=== PATIENT | female | born 1940 | race Caucasian/White ===

== ENCOUNTER → 2016-03-23 | Outpatient (CLI) | payer OTHER | LOC: LAB 14:04 | PROVIDERS: ATTEND Physician Assistant | DX: E03.9 Hypothyroidism, unspecified (principal); E55.9 Vitamin D deficiency, unspecified | CPT/HCPCS: 82306; 84443 ==

== ENCOUNTER → 2016-09-22 | Outpatient (CLI) | payer OTHER ==
[2016-09-22 17:49] LABS: BASOPHILS # (AUTO) 0.03 10*3/UL; BASOPHILS % (AUTO) 0.4 % (0-1); EOSINOPHILS # (AUTO) 0 10*3/UL; EOSINOPHILS % (AUTO) 0 % (0-8); HEMATOCRIT 40.3 % (37.0-47.0); LYMPHOCYTES # (AUTO) 0.77 10*3/uL; MEAN CORPUSCULAR HEMOGLOBIN 30.3 PG (27-31); MEAN CORPUSCULAR HGB CONC 32.3 g/dL (33-37); MEAN CORPUSCULAR VOLUME 93.9 FL (81-99); MEAN PLATELET VOLUME 11.4 FL (7.4-12.2); MONOCYTES # (AUTO) 0.66 10*3/UL (0.3-0.8); MONOCYTES % (AUTO) 9.8 % (5-15); NEUTROPHILS # (AUTO) 5.27 10*3/UL; NEUTROPHILS % (AUTO) 78.3 % (50-80); RED BLOOD COUNT 4.29 10^6/uL (4.20-5.40)
[2016-09-22 17:51] LABS: BLOOD UREA NITROGEN 29 mg/dL (7-22); BUN/CREATININE RATIO 20.71 (6-20); CALCIUM 8.9 mg/dL (8.7-10.7); LIPASE 119 IU/L (23-300); SERUM ALBUMIN 3.4 g/dL (3.5-4.8)
[2016-09-22 18:16] LABS: PLATELET MORPHOLOGY COMMENT NORMAL MORPHOLOGY (NORM); RBC MORPHOLOGY COMMENT NORMAL MORPHOLOGY (NORM); WBC MORPHOLOGY COMMENT NORMAL MORPHOLOGY (NORM)
== END ==
LOC: LAB 15:50
PROVIDERS: ATTEND Nurse Practitioner Family
DX: R10.11 Right upper quadrant pain (principal); R10.13 Epigastric pain; R19.7 Diarrhea, unspecified; R11.0 Nausea; A04.8 Other specified bacterial intestinal infections
CPT/HCPCS: 80053; 82150; 83690; 85025

== ENCOUNTER → 2016-10-06 | Outpatient (CLI) | payer OTHER ==
--- NOTE | 2016-10-06 12:48 | DI ---
History: Low back pain Comparison: 2010 Findings: Subjectively, there is osteopenia. Curvature of the lumbar spine, convexity right Intervertebral disc space narrowing and endplate osteophyte formation throughout the lumbar spine. Ri ght lateral subluxation of L4 on L5. No compression fracture Impression Extensive degenerative changes including intervertebral disc space narrowing, and osteophyte formatio n, significantly worse as compared with the study of August 11, 2009 Dextroscoliosis of the lumbar spine, worse as compared with the second 2009 Approximately 1 cm right lateral subluxation of L4 on L5 which is a new finding
== END ==
LOC: RAD 10:51
PROVIDERS: ATTEND Nurse Practitioner Family
DX: M54.5 Low back pain (principal); M47.816 Spondylosis without myelopathy or radiculopathy, lumbar region
CPT/HCPCS: 72110

== ENCOUNTER 2017-08-23 22:15 | Inpatient (IN) ==
[2017-08-23] MEDS ORDERED: Sodium Chloride 0.9% 1,000 ML PRIMARY IV ONE (22:26)
[2017-08-23 22:34] LABS: BASOPHILS # (AUTO) 0.03 10*3/UL; BASOPHILS % (AUTO) 0.4 % (0-1); EOSINOPHILS # (AUTO) 0 10*3/UL; EOSINOPHILS % (AUTO) 0 % (0-8); Hematocrit [HCT] 42.1 % (37.0-47.0); Hemoglobin [HGB] 13.8 g/dL (12.0-16.0); LYMPHOCYTES # (AUTO) 1.16 10*3/uL; MEAN CORPUSCULAR HEMOGLOBIN 30.6 PG (27-31); MEAN CORPUSCULAR HGB CONC 32.8 g/dL (33-37); MEAN CORPUSCULAR VOLUME 93.3 FL (81-99); MEAN PLATELET VOLUME 10.8 FL (7.4-12.2); MONOCYTES % (AUTO) 8.8 % (5-15); NEUTROPHILS # (AUTO) 5.02 10*3/UL; NEUTROPHILS % (AUTO) 73.5 % (50-80); RED BLOOD COUNT 4.51 10^6/uL (4.20-5.40)
[2017-08-23 22:39] LABS: BLOOD UREA NITROGEN 17 mg/dL (7-22); BUN/CREATININE RATIO 14.16 (6-20); PLATELET MORPHOLOGY COMMENT NORMAL MORPHOLOGY (NORM); RBC MORPHOLOGY COMMENT NORMAL MORPHOLOGY (NORM); SERUM ALBUMIN 3.9 g/dL (3.5-4.8); WBC MORPHOLOGY COMMENT NORMAL MORPHOLOGY (NORM)
[2017-08-23] MEDS ORDERED: ONDANSETRON 4 MG/2 ML VIAL IVP ONE (22:47)
--- NOTE | 2017-08-23 22:50 | EKG ---
[address] [address] Measurements Intervals [place] Rate: 64 P: 65 OH: 212 QRS: 21 QRSD: 97 T: 51 QT: 470 QTc: 480 Interpretive Statements SINUS RHYTHM WITH FIRST DEGREE AV BLOCK PROLONGED QT INTERVAL No previous ECG available for comparison Electronically Signed On 08-24-17 08:25:49 MDT by Reid Oliva MD [email or web address]
[2017-08-23] MEDS ORDERED: fentaNYL Inj 100 MCG/2 ML VIAL IVP ONE (23:22)
[2017-08-23] MEDS ORDERED: LIDOCAINE HCL 2 % 10 ML JELLY URO-JECT TOPICAL PRN (23:23)
--- NOTE | 2017-08-24 00:07 | DI ---
EXAM: XR Chest, 1 View CLINICAL HISTORY: ITS.REASON fall Physician Notes: Tech Comments: TECHNIQUE: Frontal view of the chest. COMPARISON: No relevant prior studies available. FINDINGS: Lungs: Unremarkable. No consolidation. Pleural space: Unremarkable. No pneumothorax. Heart: Unremarkable. No cardiomegaly. Mediastinum: Unremarkable. Bones/joints: Unremarkable. IMPRESSION: Normal chest x-ray.
--- NOTE | 2017-08-24 00:09 | DI ---
EXAM: XR Left Hip With Pelvis When Performed, 1 View CLINICAL HISTORY: ITS.REASON fall Physician Notes: Tech Comments: TECHNIQUE: Frontal view of the left hip, with pelvis when performed. COMPARISON: No relevant prior studies available. FINDINGS: Bones/joints: Displaced subcapital left femoral neck fracture. No dislocation. Soft tissues: Unremarkable. IMPRESSION: Displaced subcapital left femoral neck fracture.
[2017-08-24 00:15] LABS: BILIRUBIN,URINE NEGATIVE (NEG); CLARITY,URINE CLEAR (CLEAR); COLOR,URINE YELLOW (Y); GLUCOSE, URINE (UA) NEGATIVE (NEG); OCCULT BLOOD,URINE NEGATIVE (NEG); PH,URINE 5.5 (5.0-8.5); PROTEIN,URINE NEGATIVE (NEG); UROBILINOGEN,URINE 0.2 EU/dL (0.2)
[2017-08-24 00:21] LABS: BACTERIA,URINE MANY; RBC,URINE 0 /hpf; SQUAMOUS EPITHELIAL CELL,UR FEW; URINE SAMPLE TYPE CATH SPECIMEN
--- NOTE | 2017-08-24 00:26 | PDOC ---
Hip Injury/Pain HPI - General Chief Complaint: Lower Extremity Problem/Injury Stated Complaint: LEFT HIP PAIN AFTER FALL X 2 Date Seen by Provider: 08/24/17 Time Seen by Provider: 22:25 Source: POSITIVE: Patient, EMS Exam Limitations: POSITIVE: No limitations Nurse's Notes Reviewed & Considered: Yes EMS Report Reviewed & Considered: Verbal - History of Present Illness Initial Comments: The patient is a 76-year-old female who is brought to the emergency department by ambulance with complaints of left hip pain. She states that she was drinking to celebrate the August. She apparently lost her balance and fell landing on her left hip. She had had a minor fall earlier in the afternoon and already had some pain to the left hip however she was able to walk and bear weight on the left leg. After her second fall this evening she was unable to get up and EMS had to be called. She did not hit her head and denies any loss of consciousness. She does have a history of atrial fibrillation and she is anticoagulated with eliquis. She has no complaints of neck or back pain. She does not have any known history of prior injury to the left hip or previous surgery. She states that she normally does not drink alcohol however was drinking whiskey this evening. Have you received a tetanus shot in the past 10 years?: Unknown - Patient Home Medications Home Medications: Home Medications Naproxen 1 tab PO 2-3XD #180 tab 03/31/16 Ergocalciferol (Vitamin D2) [Vitamin D2] 1 cap PO 2XW #24 cap 06/14/16 Furosemide [Lasix] 1 unit PO QD PRN #90 tab 08/01/16 apixaban 5 mg tablet 5 mg PO tab 06/20/17 hydrocodone 5 mg-acetaminophen 325 mg tablet 1 tab PO BID PRN #60 tab 06/22/17 hydroxyzine HCl 10 mg tablet 10 mg PO QHS PRN #90 tab 06/22/17 levothyroxine 100 mcg tablet 100 mcg PO DAILY #90 tab 06/22/17 duloxetine 30 mg capsule,delayed release 30 mg PO QDAY #90 cap 07/18/17 oxycodone 10 mg tablet 10 mg PO QHS PRN #45 tab 07/18/17 metoprolol tartrate 25 mg tablet 25 mg PO BID #90 tab 08/14/17 - Patient Allergies Allergies/Adverse Reactions: Allergies 3 Allergy/AdvReac Type Severity Reaction Status Date / Time Penicillins Allergy Severe severe rash Verified 08/23/17 22:48 Past Medical History - heen HEENT History: Denies History Cardiovascular History: Hypertension, Arrhythmia, Pacemaker Respiratory History: COPD, Emphysema, Home Oxygen Use, Other (please comment) Additional Respiratory History: PT IS SUPPOSE TO USE HOME O2 BUT DOES NOT Gastrointestinal History: Denies History Genitourinary History: Denies History Endocrine History: Hypothyroidism Musculoskeletal History: Back Pain Neurological History: Denies History Blood Disorders: Denies History Psychiatric History: Denies History History of Sexually Transmitted Diseases: No Female Reproductive History: Denies History Obstetrical History: Denies History Cancer History: Denies History In Past Year Been Physically Harmed or Verbally Threatened: No History of MDRO: No History of Other Communicable Diseases: No Tobacco Use: Never Smoker Type of alcohol normally used: Hard Liquor In the Past 12 Months, Have Used or Abuse Any Substance: None Previous Surgical History: Yes Type / Date of Surgery: JACKELYN. BLADDER SLING. PACEMAKER PLACEMENT Significant Family History: No pertinent family hx Past Medical History Reviewed: Reviewed - No Changes ROS - Limitations ROS Limitations: No Limitations Constitution: DENIES: Chills, Fever Cardiovascular: DENIES: Chest Pain, Heart Palpitations Respiratory: REPORTS: Denies Resp Symptoms Neurological: DENIES: Headache, Numbness, Weakness Gastrointestinal: DENIES: Abdominal Pain Musculoskeletal: REPORTS: Other (She does have venous stasis ulcers on her legs for which she has been seeing wound care in [place]) Eyes: REPORTS: Denies Symptoms ENT: REPORTS: Denies Symptoms Hip Injury / Pain Exam - General Appearance General Appearance: POSITIVE: Alert, Cooperative, No Acute Distress - Lower Extremity Extremities: POSITIVE: Other (Examination of the left leg reveals the leg to be internally rotated and shortened, she has no range of motion of the left hip without significant pain, good dorsalis pedis pulse in the left foot, she does have venous stasis ulcers on the lower posterior legs bilaterally, pelvis is stable) - HEENT HEENT: POSITIVE: Head Inspection Nml, Eyes Inspection Nml, Ears Inspection Nml - Neck/Back Neck: POSITIVE: Normal Inspection - Respiratory / CVS Cardiovascular: POSITIVE: Regular Rate and Rhythm, Heart Sounds Normal Respiratory: POSITIVE: Breath Sounds Normal, No Respiratory Distress - Abdomen Abdomen: Soft: (All Quadrants), Denies Tenderness: (All Quadrants) Hip Injury / Pain Progress - Results Reviewed by me Xrays/CTs/US Reviewed by me: Yes Discussed with Radiologist: Yes CBC and BMP: 08/23/17 21:20 08/23/17 21:20 Lab Results:: Laboratory Results 3 08/23/17 08/23/17 08/23/17 21:20 21:20 21:20 WBC 6.83 RBC 4.51 Hgb 13.8 Hct 42.1 MCV 93.3 MCH 30.6 MCHC 32.8 L RDW Std Deviation 46.1 RDW Coeff of Kassi 13.9 Plt Count 304 MPV 10.8 Immature Gran % (Auto) 0.3 Neut % (Auto) 73.5 Lymph % (Auto) 17.0 Ramsey % (Auto) 8.8 Eos % (Auto) 0 Baso % (Auto) 0.4 Immature Gran # (Auto) 0.02 Neut # (Auto) 5.02 Lymph # (Auto) 1.16 Ramsey # (Auto) 0.60 Eos # (Auto) 0 Baso # (Auto) 0.03 WBC Morphology Comment Normal morphology Plt Morphology Comment Normal morphology RBC Morph Comment Normal morphology PT 11.1 INR 1.05 Sodium 141 Potassium 3.6 L Chloride 105 Carbon Dioxide 20 L Anion Gap 16 BUN 17 Creatinine 1.2 BUN/Creatinine Ratio 14.16 Glucose 105 Calculated Osmolality 293.0 H Calcium 8.8 Magnesium Total Bilirubin 0.2 L AST 25 ALT 24 Alkaline Phosphatase 93 Troponin I NT-Pro-B Natriuret Pep 329 Total Protein 6.9 Albumin 3.9 Globulin 3.0 Albumin/Globulin Ratio 1.30 Ur Collection Type Urine Color Urine Clarity Urine pH Ur Specific [place] Urine Protein Urine Glucose (UA) Urine Ketones Urine Occult Blood Urine Nitrate Urine Bilirubin Urine Urobilinogen Ur Leukocyte Esterase Urine RBC Urine WBC Ur Squamous Epith Cells Ur Renal Epithelial Cell Urine Crystals Urine Bacteria Urine Casts Urine Mucus Urine Trichomonas Urine Yeast Ur Culture Indicated? Serum Alcohol 3 08/23/17 08/23/17 08/23/17 21:20 21:20 21:20 WBC RBC Hgb Hct MCV MCH MCHC RDW Std Deviation RDW Coeff of Kassi Plt Count MPV Immature Gran % (Auto) Neut % (Auto) Lymph % (Auto) Ramsey % (Auto) Eos % (Auto) Baso % (Auto) Immature Gran # (Auto) Neut # (Auto) Lymph # (Auto) Ramsey # (Auto) Eos # (Auto) Baso # (Auto) WBC Morphology Comment Plt Morphology Comment RBC Morph Comment PT INR Sodium Potassium Chloride Carbon Dioxide Anion Gap BUN Creatinine BUN/Creatinine Ratio Glucose Calculated Osmolality Calcium Magnesium 2.0 Total Bilirubin AST ALT Alkaline Phosphatase Troponin I < 0.012 NT-Pro-B Natriuret Pep Total Protein Albumin Globulin Albumin/Globulin Ratio Ur Collection Type Urine Color Urine Clarity Urine pH Ur Specific [place] Urine Protein Urine Glucose (UA) Urine Ketones Urine Occult Blood Urine Nitrate Urine Bilirubin Urine Urobilinogen Ur Leukocyte Esterase Urine RBC Urine WBC Ur Squamous Epith Cells Ur Renal Epithelial Cell Urine Crystals Urine Bacteria Urine Casts Urine Mucus Urine Trichomonas Urine Yeast Ur Culture Indicated? Serum Alcohol 180 H 3 08/24/ 00:05 WBC RBC Hgb Hct MCV MCH MCHC RDW Std Deviation RDW Coeff of Kassi Plt Count MPV Immature Gran % (Auto) Neut % (Auto) Lymph % (Auto) Ramsey % (Auto) Eos % (Auto) Baso % (Auto) Immature Gran # (Auto) Neut # (Auto) Lymph # (Auto) Ramsey # (Auto) Eos # (Auto) Baso # (Auto) WBC Morphology Comment Plt Morphology Comment RBC Morph Comment PT INR Sodium Potassium Chloride Carbon Dioxide Anion Gap BUN Creatinine BUN/Creatinine Ratio Glucose Calculated Osmolality Calcium Magnesium Total Bilirubin AST ALT Alkaline Phosphatase Troponin I NT-Pro-B Natriuret Pep Total Protein Albumin Globulin Albumin/Globulin Ratio Ur Collection Type Cath specimen Urine Color Yellow Urine Clarity Clear Urine pH 5.5 Ur Specific [place] 1.010 Urine Protein Negative Urine Glucose (UA) Negative Urine Ketones Negative Urine Occult Blood Negative Urine Nitrate Positive A Urine Bilirubin Negative Urine Urobilinogen 0.2 Ur Leukocyte Esterase Negative Urine RBC 0 Urine WBC 6-8 Ur Squamous Epith Cells Few Ur Renal Epithelial Cell None Urine Crystals None Urine Bacteria Many H Urine Casts None Urine Mucus Rare Urine Trichomonas None Urine Yeast None Ur Culture Indicated? Culture set Serum Alcohol EKG Interpreted/Reviewed By Me:: Yes EKG Interpretation:: POSITIVE: Normal Sinus Rhythm, Normal Rate, Normal QRS, Normal ST/T - Patient's Progress MDM / ED Course: The patient had received fentanyl 25 g and Zofran 4 mg IV in route per EMS. She did receive a second dose of fentanyl 25 g after x-ray. X-rays were obtained of the left hip which reveals a displaced subcapital femoral neck fracture per radiologist. Her chest x-ray reveals no acute abnormalities per radiologist. Lab work is all essentially unremarkable except for an elevated blood alcohol 180. I did discuss the patient with Dr. Painter who is on-call for orthopedic surgery and he evaluated the patient's x-rays. He recommended 5 pounds of Teague's traction and the patient will be admitted to the hospitalist service. Dr. Mcdonough has agreed to admit the patient. - Consult Counseled: POSITIVE: Patient, RE: Lab Results, RE: Radiology Results, RE: DX Patient Care Time - Estimated PCT Patient Care Time (In Minutes): 40 Vital Signs - Recent Vital Signs Vital Signs: Vital Signs (Last 8 hours) Temp Pulse Resp BP Pulse Ox 08/23/17 22:15 96.3 F L 62 16 107/77 93 - VS Reviewed Vital Signs Reviewed: Yes Discharge Clinical Impression: Chronic venous hypertension w/ulcer and inflammation involv both sides, Subcapital fracture of neck of left femur, Alcohol intoxication Discharge Disposition: Admit to Inpatient Condition: Fair Follow Up With: Lj Weaver DNP [Primary Care Provider] - Date Decision to Admit to Inpatient: 08/23/17 Time Decision to Admit to Inpatient: 23:40
[2017-08-24] MEDS ORDERED: HYDROXYZINE HCL 10 MG PO PRN (00:42)
[2017-08-24] MEDS ORDERED: LIDOCAINE HCL 2 % 10 ML JELLY URO-JECT TOPICAL PRN (00:42)
[2017-08-24] MEDS ORDERED: DOCUSATE 100 MG CAPSULE PO PRN (00:42)
[2017-08-24] MEDS ORDERED: ACETAMINOPHEN 325 MG TABLET PO PRN (00:42)
[2017-08-24] MEDS ORDERED: ONDANSETRON 4 MG/2 ML VIAL IVP PRN (00:42)
[2017-08-24] MEDS ORDERED: Sodium Chloride 0.9% 1,000 ML PRIMARY IV SCH (00:42)
[2017-08-24] MEDS ORDERED: CALCIUM CARBONATE 500 MG (TUMS) CHEWABLE TABLET PO PRN (00:42)
[2017-08-24] MEDS ORDERED: LIDOCAINE W/ SODIUM BICARB 0.5 ML SYR SUBD PRN (00:42)
[2017-08-24] MEDS ORDERED: HYDROcodone-APAP 5 MG -325 MG TABLET PO PRN (00:42)
[2017-08-24] MEDS: HYDROmorphone 2 MG/1 ML IVP PRN ×3 (01:09→10:38)
[2017-08-24] MEDS ORDERED: oxyCODONE/APAP 7.5/325 Tab 1 TAB TAB PO PRN (01:20)
[2017-08-24] MEDS ORDERED: POTASSIUM CHLORIDE 20 MEQ TAB PO ONE (01:21)
--- NOTE | 2017-08-24 01:30 | PDOC ---
HPI - History of Present Illness Date of Service: 08/24/17 Time of Service: 01:25 Chief Complaint: Left hip pain History of Present Illness: This very pleasant 76-year-old female with chronic pain due to arthritis, chronic venous stasis ulcers bilaterally, atrial fibrillation, history of pacemaker placement, amongst other problems, who presents tonight after 2 falls today. She states that she fell off of her porch with a mechanical fall earlier in the day. This was on August 23. About 5 or 6 hours later, she had another fall and she could not get up. Her son was present and called the ambulance. In the emergency room she was found to have a hip fracture. She had been drinking alcohol, but she's not sure which fall action caused her fracture. She had pain that seemed to also be accompanied with some muscle spasm. Orthopedics in consult id. they will see the patient a little later today. She's not had a fall like this before. She did have a vitamin D deficiency but that was repleted and her most recent vitamin D was over 43. She denied any chest pain, shortness breath, urinary symptoms, or fever. She has not had any coronary artery disease, history of stroke, or renal failure. Her EKG showed a first-degree AV block. She is on a beta trisha. She did notice some pain after the first fall, but again she was able to bear weight after the first fall. She denied hitting her head and she did not lose consciousness. It was a ground-level fall. Although her blood alcohol was 180 , she did not drink prior to her first fall today. Past Medical History Medical History: 1. Atrial fibrillation. 2. History of pacemaker placement. 3. Hypertension. 4. 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 5. Chronic venous stasis ulcers. 6. Hypothyroidism. 7. COPD, does not smoke. She has oxygen prescribed but does not use it regularly. Surgical History: 1. Bladder sling. 2. Status post appendectomy. 3. History of cholecystectomy. 4. Hysterectomy Pertinent Family History: Patient's dad had COPD. Past Social History: Has 5 children, lives with her son in [place]. Does not smoke. Occasionally drinks alcohol. Tobacco Use: Never Smoker In the Past 12 Months, Have Used or Abuse Any of the Following Substance: None Alcohol Use: Occasionally Medication / Allergies Home Medications: Home Medications 3 Medication Instructions Recorded Confirmed Type Naproxen 1 tab PO 2-3XD #180 tab 03/31/16 08/24/17 Rx Ergocalciferol (Vitamin D2) 1 cap PO 2XW #24 cap 06/14/16 08/24/17 Rx [Vitamin D2] Furosemide [Lasix] 1 unit PO QD PRN #90 tab 08/01/16 08/24/17 History apixaban 5 mg tablet 5 mg PO tab 06/20/17 06/20/17 History hydrocodone 5 mg-acetaminophen 325 1 tab PO BID PRN #60 tab 06/22/17 08/24/17 Rx mg tablet hydroxyzine HCl 10 mg tablet 10 mg PO QHS PRN #90 tab 06/22/17 08/24/17 Rx levothyroxine 100 mcg tablet 100 mcg PO DAILY #90 tab 06/22/17 08/24/17 Rx duloxetine 30 mg capsule,delayed 30 mg PO QDAY #90 cap 07/18/17 08/24/17 Rx release oxycodone 10 mg tablet 10 mg PO QHS PRN #45 tab 07/18/17 08/24/17 Rx metoprolol tartrate 25 mg tablet 25 mg PO BID #90 tab 08/14/17 08/24/17 Rx Allergies/Adverse Reactions: Allergies 3 Allergy/AdvReac Type Severity Reaction Status Date / Time Penicillins Allergy Severe severe rash Verified 08/23/17 22:48 Review of Systems - Review of Systems All Systems: Reviewed & No Additional Complaints Except as Stated (I did a 12 point review of systems and it was negative other than that discussed in history of present illness and that noted below) - Cardiovascular Cardiovascular: REPORTS: Other (History of pacemaker placement) - Gastrointestinal Gastrointestinal / Abdominal: REPORTS: Negative System Review - Genitourinary Genitourinary: REPORTS: Negative System Review, Other (Patient denied any urinary tract symptoms) - Neurological Neurologic: REPORTS: Negative System Review - Additonal Details Additional ROS Details: Has chronic venous stasis ulcers as mentioned. Had wound care for these in the past, but she states that this did not seem to help close them. She is not doing active wound care therapy at this time. Exam - Vitals Vital Signs: Vital Signs Temperature 97.0 F Temperature Source Temporal Artery Scan Pulse Rate [Pulse Oximeter] 62 Pulse Rate 67 Respiratory Rate 20 Blood Pressure [Left Arm] 107/77 Blood Pressure 133/82 Pulse Ox 97 Oxygen Flow Rate 1 Oxygen Delivery Method Nasal Cannula Height 5 ft 9 in Weight 249 lb - General General Appearance: No Acute Distress, Cooperative - Head Head Exam: Normal Inspection, Normocephalic, Atraumatic - Eye Eye Exam: POSITIVE: No Scleral Icterus - ENT ENT Exam: POSITIVE: Mucous Membranes Moist - Neck Neck Exam: Normal Inspection, No Tenderness, No Lymphadenopathy, No Thyromegaly , JVP is not Raised - Respiratory Respiratory Exam: POSITIVE: Clear to Auscultation - Bilaterally, Breathing Non Labored - Cardiovascular Cardiovascular Exam: POSITIVE: RRR, No Murmur, No Clicks, No Gallops, No Rubs, No JVD Additional Cardiovascular Details: Pacemaker is palpable in the right upper chest, - GI/Abdominal GI/Abdominal Exam: POSITIVE: Normal Bowel Sounds, Non Tender, Non Distended, Soft - Rectal Rectal Exam: POSITIVE: Deferred - External Exam: POSITIVE: Deferred Exam: POSITIVE: Deferred, Domingo Catheter in Place (Urine appears clear on exam) - Extremities Extremities Exam: POSITIVE: No Clubbing Present, No Cyanosis Present, +1 Edema Additional Extremities Exam Details: There are bilateral distal calf chronic venous stasis ulcers that appear with eschar, and do not appear to be infected, no evidence of surrounding cellulitis , and no drainage. - Back Back Exam: POSITIVE: No CVA Tenderness - Neurological Neurological Exam: POSITIVE: Alert, Oriented x 3, No Facial Droop, Speech Intact / Clear Additional Neurological Exam Details: Muscle strength testing was deferred at this time due to the patient's left lower extremity injury. She is able to move all other extremities however without difficulty - Psychiatric Psychiatric Exam: POSITIVE: Normal Affect, Normal Mood - Integumentary Integumentary Exam: POSITIVE: Normal Color, Warm, Dry, Intact Additional Integumentary Exam Details: Venous stasis ulcers as already noted above Results - Labs CBC and BMP: 08/23/17 21:20 08/23/17 21:20 Additional Lab Results: Laboratory Results 08/23/17 08/23/17 08/23/17 Range/Units 21:20 21:20 21:20 WBC 6.83 (4.8-10.8) 10^3/uL RBC 4.51 (4.20-5.40) 10^6/uL Hgb 13.8 (12.0-16.0) g/dL Hct 42.1 (37.0-47.0) % MCV 93.3 (81-99) FL MCH 30.6 (27-31) PG MCHC 32.8 L (33-37) g/dL RDW Std Deviation 46.1 (39-50) fL RDW Coeff of Kassi 13.9 (11.5-14.5) % Plt Count 304 (140-350) 10*3/uL MPV 10.8 (7.4-12.2) FL Immature Gran % (Auto) 0.3 (0-5) % Neut % (Auto) 73.5 (50-80) % Lymph % (Auto) 17.0 (10-50) % Dickenson % (Auto) 8.8 (5-15) % Eos % (Auto) 0 (0-8) % Baso % (Auto) 0.4 (0-1) % Immature Gran # (Auto) 0.02 10*3/UL Neut # (Auto) 5.02 10*3/UL Lymph # (Auto) 1.16 10*3/uL Dickenson # (Auto) 0.60 (0.3-0.8) 10*3/UL Eos # (Auto) 0 10*3/UL Baso # (Auto) 0.03 10*3/UL WBC Morphology Comment Normal morphology (NORM) Plt Morphology Comment Normal morphology (NORM) RBC Morph Comment Normal morphology (NORM) PT 11.1 (9.7-11.4) secs INR 1.05 (0.00-5.90) N/A Sodium 141 (135-145) meq/L Potassium 3.6 L (3.8-5.2) meq/L Chloride 105 (98-112) meq/L Carbon Dioxide 20 L (23-33) meq/L Anion Gap 16 (5-20) BUN 17 (7-22) mg/dL Creatinine 1.2 (0.50-1.20) mg/dL BUN/Creatinine Ratio 14.16 (6-20) Glucose 105 (78-110) mg/dL Calculated Osmolality 293.0 H (267-292) mOsm/kg Calcium 8.8 (8.7-10.7) mg/dL Magnesium (1.6-2.4) mg/dL Total Bilirubin 0.2 L (0.3-1.2) mg/dL AST 25 (8-39) IU/L ALT 24 (9-52) IU/L Alkaline Phosphatase 93 (38-126) IU/L Troponin I (< 0.040) ng/mL NT-Pro-B Natriuret Pep 329 (0-450) PG/ML Total Protein 6.9 (6.1-8.0) g/dL Albumin 3.9 (3.5-4.8) g/dL Globulin 3.0 (2.50-4.10) g/dL Albumin/Globulin Ratio 1.30 (1.3-2.0) mg/g Ur Collection Type Urine Color (Y) Urine Clarity (CLEAR) Urine pH (5.0-8.5) Ur Specific [place] (1.005-1.030) Urine Protein (NEG) mg/dl Urine Glucose (UA) (NEG) mg/dL Urine Ketones (NEG) Urine Occult Blood (NEG) Urine Nitrate (NEG) Urine Bilirubin (NEG) Urine Urobilinogen (0.2) EU/dL Ur Leukocyte Esterase (NEG) Urine RBC (NONE) /hpf Urine WBC (NONE) Ur Squamous Epith Cells (NONE) Ur Renal Epithelial Cell (NONE) Urine Crystals Urine Bacteria (NONE) Urine Casts (NONE) Urine Mucus (NONE) Urine Trichomonas (NONE) Urine Yeast (NONE) Ur Culture Indicated? Serum Alcohol (0-10) mg/dL 08/23/17 08/23/17 08/23/17 Range/Units 21:20 21:20 21:20 WBC (4.8-10.8) 10^3/uL RBC (4.20-5.40) 10^6/uL Hgb (12.0-16.0) g/dL Hct (37.0-47.0) % MCV (81-99) FL MCH (27-31) PG MCHC (33-37) g/dL RDW Std Deviation (39-50) fL RDW Coeff of Kassi (11.5-14.5) % Plt Count (140-350) 10*3/uL MPV (7.4-12.2) FL Immature Gran % (Auto) (0-5) % Neut % (Auto) (50-80) % Lymph % (Auto) (10-50) % Dickenson % (Auto) (5-15) % Eos % (Auto) (0-8) % Baso % (Auto) (0-1) % Immature Gran # (Auto) 10*3/UL Neut # (Auto) 10*3/UL Lymph # (Auto) 10*3/uL Dickenson # (Auto) (0.3-0.8) 10*3/UL Eos # (Auto) 10*3/UL Baso # (Auto) 10*3/UL WBC Morphology Comment (NORM) Plt Morphology Comment (NORM) RBC Morph Comment (NORM) PT (9.7-11.4) secs INR (0.00-5.90) N/A Sodium (135-145) meq/L Potassium (3.8-5.2) meq/L Chloride (98-112) meq/L Carbon Dioxide (23-33) meq/L Anion Gap (5-20) BUN (7-22) mg/dL Creatinine (0.50-1.20) mg/dL BUN/Creatinine Ratio (6-20) Glucose (78-110) mg/dL Calculated Osmolality (267-292) mOsm/kg Calcium (8.7-10.7) mg/dL Magnesium 2.0 (1.6-2.4) mg/dL Total Bilirubin (0.3-1.2) mg/dL AST (8-39) IU/L ALT (9-52) IU/L Alkaline Phosphatase (38-126) IU/L Troponin I < 0.012 (< 0.040) ng/mL NT-Pro-B Natriuret Pep (0-450) PG/ML Total Protein (6.1-8.0) g/dL Albumin (3.5-4.8) g/dL Globulin (2.50-4.10) g/dL Albumin/Globulin Ratio (1.3-2.0) mg/g Ur Collection Type Urine Color (Y) Urine Clarity (CLEAR) Urine pH (5.0-8.5) Ur Specific [place] (1.005-1.030) Urine Protein (NEG) mg/dl Urine Glucose (UA) (NEG) mg/dL Urine Ketones (NEG) Urine Occult Blood (NEG) Urine Nitrate (NEG) Urine Bilirubin (NEG) Urine Urobilinogen (0.2) EU/dL Ur Leukocyte Esterase (NEG) Urine RBC (NONE) /hpf Urine WBC (NONE) Ur Squamous Epith Cells (NONE) Ur Renal Epithelial Cell (NONE) Urine Crystals Urine Bacteria (NONE) Urine Casts (NONE) Urine Mucus (NONE) Urine Trichomonas (NONE) Urine Yeast (NONE) Ur Culture Indicated? Serum Alcohol 180 H (0-10) mg/dL 08/24/ Range/Units 00:05 WBC (4.8-10.8) 10^3/uL RBC (4.20-5.40) 10^6/uL Hgb (12.0-16.0) g/dL Hct (37.0-47.0) % MCV (81-99) FL MCH (27-31) PG MCHC (33-37) g/dL RDW Std Deviation (39-50) fL RDW Coeff of Kassi (11.5-14.5) % Plt Count (140-350) 10*3/uL MPV (7.4-12.2) FL Immature Gran % (Auto) (0-5) % Neut % (Auto) (50-80) % Lymph % (Auto) (10-50) % Dickenson % (Auto) (5-15) % Eos % (Auto) (0-8) % Baso % (Auto) (0-1) % Immature Gran # (Auto) 10*3/UL Neut # (Auto) 10*3/UL Lymph # (Auto) 10*3/uL Dickenson # (Auto) (0.3-0.8) 10*3/UL Eos # (Auto) 10*3/UL Baso # (Auto) 10*3/UL WBC Morphology Comment (NORM) Plt Morphology Comment (NORM) RBC Morph Comment (NORM) PT (9.7-11.4) secs INR (0.00-5.90) N/A Sodium (135-145) meq/L Potassium (3.8-5.2) meq/L Chloride (98-112) meq/L Carbon Dioxide (23-33) meq/L Anion Gap (5-20) BUN (7-22) mg/dL Creatinine (0.50-1.20) mg/dL BUN/Creatinine Ratio (6-20) Glucose (78-110) mg/dL Calculated Osmolality (267-292) mOsm/kg Calcium (8.7-10.7) mg/dL Magnesium (1.6-2.4) mg/dL Total Bilirubin (0.3-1.2) mg/dL AST (8-39) IU/L ALT (9-52) IU/L Alkaline Phosphatase (38-126) IU/L Troponin I (< 0.040) ng/mL NT-Pro-B Natriuret Pep (0-450) PG/ML Total Protein (6.1-8.0) g/dL Albumin (3.5-4.8) g/dL Globulin (2.50-4.10) g/dL Albumin/Globulin Ratio (1.3-2.0) mg/g Ur Collection Type Cath specimen Urine Color Yellow (Y) Urine Clarity Clear (CLEAR) Urine pH 5.5 (5.0-8.5) Ur Specific [place] 1.010 (1.005-1.030) Urine Protein Negative (NEG) mg/dl Urine Glucose (UA) Negative (NEG) mg/dL Urine Ketones Negative (NEG) Urine Occult Blood Negative (NEG) Urine Nitrate Positive A (NEG) Urine Bilirubin Negative (NEG) Urine Urobilinogen 0.2 (0.2) EU/dL Ur Leukocyte Esterase Negative (NEG) Urine RBC 0 (NONE) /hpf Urine WBC 6-8 (NONE) Ur Squamous Epith Cells Few (NONE) Ur Renal Epithelial Cell None (NONE) Urine Crystals None Urine Bacteria Many H (NONE) Urine Casts None (NONE) Urine Mucus Rare (NONE) Urine Trichomonas None (NONE) Urine Yeast None (NONE) Ur Culture Indicated? Culture set Serum Alcohol (0-10) mg/dL - EKG Data -: EKG Interpreted by Me EKG Shows Normal: Sinus Rhythm (Has first-degree AV block) - Imaging Status: Image Reviewed by Me (Chest x-ray appears negative for pneumonia on my view. Pacemaker appears to be an atrial and ventricular pacemaker. It appears that the leads are in the right place. Pelvic film shows a left hip fracture that looks like the head of the femur is completely detached from the neck.) Assessment and Plan - Patient Problems (1) Subcapital fracture of neck of left femur Current Visit: Yes Status: Acute Code(s): S72.012A - Unspecified intracapsular fracture of left femur, initial encounter for closed fracture Qualifiers: Encounter type: initial encounter Fracture type: closed Qualified Code(s) : S72.012A - Unspecified intracapsular fracture of left femur, initial encounter for closed fracture (2) Atrial fibrillation Current Visit: Yes Status: Acute Code(s): I48.91 - Unspecified atrial fibrillation Qualifiers: Atrial fibrillation type: chronic Qualified Code(s): I48.2 - Chronic atrial fibrillation (3) COPD (chronic obstructive pulmonary disease) Current Visit: Yes Status: Acute Code(s): J44.9 - Chronic obstructive pulmonary disease, unspecified Qualifiers: COPD type: emphysema Emphysema type: unspecified Qualified Code(s): J43.9 - Emphysema, unspecified (4) Chronic venous hypertension with ulcer Current Visit: Yes Status: Acute Code(s): I87.319 - Chronic venous hypertension (idiopathic) with ulcer of unspecified lower extremity; L97.909 - Non-pressure chronic ulcer of unspecified part of unspecified lower leg with unspecified severity Qualifiers: Laterality: bilateral Qualified Code(s): I87.313 - Chronic venous hypertension (idiopathic) with ulcer of bilateral lower extremity (5) Alcohol intoxication Current Visit: Yes Status: Acute Code(s): F10.929 - Alcohol use, unspecified with intoxication, unspecified Qualifiers: Complication of substance-induced condition: uncomplicated Qualified Code(s ): F10.920 - Alcohol use, unspecified with intoxication, uncomplicated (6) Essential hypertension Current Visit: No Status: Chronic Code(s): I10 - Essential (primary) hypertension (7) Pacemaker Current Visit: Yes Status: Chronic Code(s): Z95.0 - Presence of cardiac pacemaker (8) Hypothyroidism Current Visit: Yes Status: Chronic Qualifiers: Hypothyroidism type: acquired Qualified Code(s): E03.9 - Hypothyroidism, unspecified - Assessment / Plan Additional Assessment/Plan Details: Admit the patient. Orthopedics is been consulted and Dr. Painter will see the patient later today. In the meantime we will place patient in Teague's traction. Parenteral pain medications as well as by mouth pain medications. Antiemetics be written for. IV fluids. Hold the eliquis until the patient is postoperative. The soonest I would recommend from that standpoint to go to the operating room would be Monday. Although this is a twice a day medication, it would be best to wait about 24 hours or longer after the last dose, and she had her last dose in the morning of August 23. Based on ACC/AHA guidelines, I think the patient should proceed to the operating room with postoperative risk stratification as appropriate. She should have her beta trisha on the date of surgery. PT and OT for venous stasis ulcers and wound care. Given the urinalysis findings, I think we should go ahead and Gram stain in the urine and start empirically antibiotics. She does not have overwhelming symptoms of urinary tract infection, but given this finding I think it's important to go ahead and treat. Nasal MRSA screening. Vitamin D was checked earlier this year and normal. Eventual DVT prophylaxis postoperatively and I think that we can resume eliquis to achieve this and also continue stroke prophylaxis with atrial fibrillation. CODE STATUS discussed. Patient is DO NOT RESUSCITATE. Will need some sort of rehabilitation option post acute hospital stay. Swing bed may be a thought. She states that she gets nausea from hydrocodone so switched to Percocet for by mouth pain medications and in addition I will hold couple of home medications as well. I discussed the above plan with the patient and she agreed.
[2017-08-24] MEDS ORDERED: LABETALOL 20 MG/4 ML (5 MG/1 ML) SYRINGE IVP ONE (05:20)
[2017-08-24] MEDS ORDERED: LEVOTHYROXINE 100 MCG TABLET PO SCH (05:30)
[2017-08-24 05:33] LABS: Hematocrit [HCT] 40.1 % (37.0-47.0); Hemoglobin [HGB] 13.1 g/dL (12.0-16.0); MEAN CORPUSCULAR HEMOGLOBIN 30.3 PG (27-31); MEAN CORPUSCULAR HGB CONC 32.7 g/dL (33-37); MEAN CORPUSCULAR VOLUME 92.6 FL (81-99); MEAN PLATELET VOLUME 10.6 FL (7.4-12.2); RED BLOOD COUNT 4.33 10^6/uL (4.20-5.40)
--- NOTE | 2017-08-24 05:36 | EKG ---
[address] [address] Measurements Intervals [place] Rate: 115 P: 220 MA: 270 QRS: 264 QRSD: 170 T: 65 QT: 420 QTc: 488 Interpretive Statements ELECTRONIC VENTRICULAR PACEMAKER ABNORMAL RHYTHM ECG Compared to ECG 08/23/2017 22:51:58 Sinus rhythm no longer present First degree AV block no longer present Prolonged QT interval no longer present Electronically Signed On 08-24-17 08:27:05 MDT by Reid Oliva MD [id number]
[2017-08-24 05:39] LABS: BLOOD UREA NITROGEN 15 mg/dL (7-22); BUN/CREATININE RATIO 16.66 (6-20); SERUM ALBUMIN 3.4 g/dL (3.5-4.8)
[2017-08-24] MEDS ORDERED: Magnesium Sulfate 2gm (Premix) 2 GM/50 ML BAG IV ONE (07:31)
[2017-08-24] MEDS: Metoprolol TARTRATE Tab 25 MG TAB PO SCH ×2 (07:34→08:34)
[2017-08-24] MEDS: Magnesium Sulfate 1gm (Premix) 1 GM/100 ML BAG IV SCH ×2 (07:42→08:42)
--- NOTE | 2017-08-24 07:49 | EKG ---
[address] [place] [address] Measurements Intervals [place] Rate: 142 P: AL: 0 QRS: 10 QRSD: 94 T: 63 QT: 305 QTc: 387 Interpretive Statements UNCERTAIN IRREGULAR RHYTHM ELECTRONIC VENTRICULAR PACEMAKER -- CONTOUR ANALYSIS BASED ON INTRINSIC RHYTHM NONSPECIFIC ST & T-WAVE ABNORMALITY ABNORMAL RHYTHM ECG Compared to ECG 08/24/2017 05:37:40 T-wave abnormality now present Electronically Signed On 08-24-17 08:28:06 MDT by Reid Oliva MD [id number]
[2017-08-24] MEDS ORDERED: METOPROLOL TARTRATE 5 MG/5 ML VIAL IVP ONE (08:21)
[2017-08-24] MEDS ORDERED: DULOXETINE 30 MG CAPSULE PO SCH (09:00)
[2017-08-24] MEDS ORDERED: DILTIAZEM 5 MG/ML - 5 ML IV ONE (09:06)
[2017-08-24] MEDS ORDERED: Diltiazem Drip 125 MG in Sodium Chloride 0.9% 100 ML IV SCH (09:15)
[2017-08-24] MEDS ORDERED: cefTRIAXone Inj 2 GM in Sodium Chloride 0.9% 100 ML IV SCH (09:30)
--- NOTE | 2017-08-24 09:42 | DCSUMMARY ---
Hospitalization Summary Admit Date: 08/24/2017 Discharge Date: 08/24/17 Primary Diagnosis:: left subcapital hip fracture Secondary Diagnosis:: Atrial fibrillation with rapid ventricular response and pacemaker mediated ventricular tachycardia Hospital Course: This very pleasant 76-year-old female that was admitted earlier this morning with a left subcapital hip fracture. She had 2 falls on August 23 prior to presentation. After her second fall, she had a lot of pain on the left hip and could not get up. She admits to drinking alcohol on August 23, but states to me that she does not typically drink alcohol and does this only on an occasional basis. She did not go into the alcohol withdrawal during her time here. She has other medical problems including chronic venous stasis with venous stasis ulcers bilaterally that are not infected, hypertension, hypothyroidism, amongst other issues. Early in the morning, she developed atrial fibrillation with rapid ventricular response with what looked like ventricular tachycardia runs. These look like nonsustained runs of ventricular tachycardia. I discussed with cardiology in [place], and they felt that this looked like atrial fibrillation with rapid ventricular response with pacemaker mediated ventricular tachycardia. I spoke with our orthopedic physician, and our anesthesiology team here and they felt that it would be best for the patient from a heart rhythm perspective to have this hip fracture repair done in a facility with a cement rubber present. I spoke with the emergency room physician, hospitalist, and notified the orthopedic physician on-call at [facility], and they were all willing to accept the patient. In terms of her atrial fibrillation, she is on Eliquis for stroke prevention at her last dose on the morning of August 23. I have that held at this time anticipating surgery. We gave her dose of labetalol earlier this morning, followed with a 5 mg dose of metoprolol, and now are starting her on a Cardizem drip. She has gone from the 140s now to the 120s. We will continue her on a Cardizem drip to try and gain better control of her heart rate. I will defer whether or not the patient needs a heparin drip to the team at [facility] prior to her surgery. The patient had a urinalysis done at workup in the emergency room that showed gram-negative rods and may have been consistent with a urinary tract infection despite lack of symptoms. Given that she may be looking at a hip fracture repair, I felt that it would be most appropriate to give her a dose of Rocephin pending culture results. She is getting that now. The patient's chronic venous stasis ulcers do not appear to have any evidence of infection. They have what appeared to be clean eschars and there is no drainage from those wounds. They are currently dressed, but may benefit from wound control during the patient's hospital stay. The patient's electrolytes were replaced including her potassium. She is getting additional magnesium today. There was no evidence of any alcohol withdrawal during the hospital stay here. The patient's other medical issues, including her hypothyroidism and hypertension, remained stable during the hospital stay here. I discussed this all with the patient she was agreeable to transfer but would like to try to come back here for rehabilitation on the swing bed status if possible. She denies any chest pain or shortness of breath. Her hip pain is present but controlled with medications at this time. She does feel palpitations. Assessment and Plan: 1. As per discharge assessments noted 2. Disposition: Patient will be discharged to [facility] 3. Condition on discharge, stable, but condition could deteriorate based on what has been discussed above 4. Diet: regular diet 5. Activities: As per [facility] 6. Follow-Up: 1. Dr. Peacock 2. 7. Medications at the Time of Discharge: Active Medications Generic Name Dose Route Start Last Admin Trade Name Freq PRN Reason Stop Dose Admin Acetaminophen 650 mg 08/24/17 00:42 Tylenol PO Q6H PRN Pain or Fever Calcium Carbonate 1 - 2 tab 08/24/17 00:42 Tums PO Q6H PRN Heartburn Docusate Sodium 100 mg 08/24/17 00:42 Colace PO BID PRN Constipation Duloxetine HCl 30 mg 08/24/17 09:00 08/24/17 08:39 Cymbalta PO 30 mg DAILY NORTH Administration Hydromorphone HCl 1 mg 08/24/17 00:42 08/24/17 05:13 Dilaudid Inj IVP 1 mg Q3H PRN Administration Pain Sodium Chloride 1,000 mls @ 125 mls/hr 08/24/17 00:42 08/24/17 01:10 Normal Saline PRIMARY IV 125 mls/hr .Q8H NORTH Administration Magnesium Sulfate/Dextrose 1 gm in 100 mls @ 100 mls/hr 08/24/17 08:00 08:42 Magnesium Sulfate 1gm (Premix) IV 08/24/17 09:59 100 mls/hr Q1H NORTH Administration Diltiazem HCl 125 mg/ Sodium 125 mls @ 15 mls/hr 08/24/17 09:15 08/24/17 09: 35 Chloride IV 15 mg/hr .TITRATE NORTH 15 mls/hr Administration Protocol 15 MG/HR Ceftriaxone Sodium 2 gm/ 100 mls @ 200 mls/hr 08/24/17 09:30 Sodium Chloride IV Q24H NORTH Levothyroxine Sodium 100 mcg 08/24/17 05:30 08/24/17 05:10 Synthroid PO 100 mcg DAILY@0530 NORTH Administration Lidocaine HCl 0.5 ml 08/24/17 00:42 Lidocaine Buffered Inj SUBD ONCE PRN IV Starts Lidocaine HCl 10 ml 08/24/17 00:42 Xylocaine Uro-Ject 2% TOPICAL ONCE PRN Discomfort catheter insertion Metoprolol Tartrate 25 mg 08/24/17 09:00 08/24/17 08:34 Lopressor Tab PO Not Given BID NORTH Non-Formulary Medication 10 mg 08/24/17 00:42 Hydroxyzine Hcl [Hydroxyzine Hcl] PO BEDTIME PRN itching Ondansetron HCl 4 mg 08/24/17 00:42 Zofran Inj IVP Q4H PRN NAUSEA / VOMITING Oxycodone/Acetaminophen 1 - 2 tab 08/24/17 01:20 08/24/17 02:57 Percocet 7.5/325 Tab PO 2 tab Q4H PRN Administration Pain 8. Time, care, counseling and coordination of care for this discharge is greater than 30 minutes. Exam - Vitals Vital Signs: Vital Signs Temperature 97.2 F Temperature Source Temporal Artery Scan Pulse Rate [Pulse Oximeter] 117 Pulse Rate 150 Respiratory Rate 20 Blood Pressure [Right Arm] 111/77 Blood Pressure [Left Arm] 107/77 Blood Pressure 133/82 Pulse Ox 94 Oxygen Flow Rate 1 Oxygen Delivery Method Nasal Cannula Height 5 ft 9 in Weight 259 lb 6.4 oz - General General Appearance: No Acute Distress, Cooperative - Eye Eye Exam: POSITIVE: No Scleral Icterus - ENT ENT Exam: POSITIVE: Mucous Membranes Moist - Respiratory Respiratory Exam: POSITIVE: Clear to Auscultation - Bilaterally, Breathing Non Labored - Cardiovascular Cardiovascular Exam: POSITIVE: No Clicks, No Gallops, No Rubs, Irregular Rhythm , Tachycardia, No JVD - GI/Abdominal GI/Abdominal Exam: POSITIVE: Normal Bowel Sounds, Non Tender, Non Distended, Soft - Extremities Extremities Exam: POSITIVE: No Clubbing Present, No Cyanosis Present, +1 Edema Additional Extremities Exam Details: She is in Teague's traction on the left lower extremity - Neurological Neurological Exam: POSITIVE: Alert, Oriented x 3, No Facial Droop, Speech Intact / Clear Data Peritnent Studies: Laboratory Results 08/23/17 08/23/17 08/23/17 Range/Units 21:20 21:20 21:20 WBC 6.83 (4.8-10.8) 10^3/uL RBC 4.51 (4.20-5.40) 10^6/uL Hgb 13.8 (12.0-16.0) g/dL Hct 42.1 (37.0-47.0) % MCV 93.3 (81-99) FL MCH 30.6 (27-31) PG MCHC 32.8 L (33-37) g/dL RDW Std Deviation 46.1 (39-50) fL RDW Coeff of Kassi 13.9 (11.5-14.5) % Plt Count 304 (140-350) 10*3/uL MPV 10.8 (7.4-12.2) FL Immature Gran % (Auto) 0.3 (0-5) % Neut % (Auto) 73.5 (50-80) % Lymph % (Auto) 17.0 (10-50) % Dickey % (Auto) 8.8 (5-15) % Eos % (Auto) 0 (0-8) % Baso % (Auto) 0.4 (0-1) % Immature Gran # (Auto) 0.02 10*3/UL Neut # (Auto) 5.02 10*3/UL Lymph # (Auto) 1.16 10*3/uL Dickey # (Auto) 0.60 (0.3-0.8) 10*3/UL Eos # (Auto) 0 10*3/UL Baso # (Auto) 0.03 10*3/UL WBC Morphology Comment Normal morphology (NORM) Plt Morphology Comment Normal morphology (NORM) RBC Morph Comment Normal morphology (NORM) PT 11.1 (9.7-11.4) secs INR 1.05 (0.00-5.90) N/A Sodium 141 (135-145) meq/L Potassium 3.6 L (3.8-5.2) meq/L Chloride 105 (98-112) meq/L Carbon Dioxide 20 L (23-33) meq/L Anion Gap 16 (5-20) BUN 17 (7-22) mg/dL Creatinine 1.2 (0.50-1.20) mg/dL BUN/Creatinine Ratio 14.16 (6-20) Glucose 105 (78-110) mg/dL Calculated Osmolality 293.0 H (267-292) mOsm/kg Calcium 8.8 (8.7-10.7) mg/dL Magnesium (1.6-2.4) mg/dL Total Bilirubin 0.2 L (0.3-1.2) mg/dL AST 25 (8-39) IU/L ALT 24 (9-52) IU/L Alkaline Phosphatase 93 (38-126) IU/L Troponin I (< 0.040) ng/mL NT-Pro-B Natriuret Pep 329 (0-450) PG/ML Total Protein 6.9 (6.1-8.0) g/dL Albumin 3.9 (3.5-4.8) g/dL Globulin 3.0 (2.50-4.10) g/dL Albumin/Globulin Ratio 1.30 (1.3-2.0) mg/g Ur Collection Type Urine Color (Y) Urine Clarity (CLEAR) Urine pH (5.0-8.5) Ur Specific [place] (1.005-1.030) Urine Protein (NEG) mg/dl Urine Glucose (UA) (NEG) mg/dL Urine Ketones (NEG) Urine Occult Blood (NEG) Urine Nitrate (NEG) Urine Bilirubin (NEG) Urine Urobilinogen (0.2) EU/dL Ur Leukocyte Esterase (NEG) Urine RBC (NONE) /hpf Urine WBC (NONE) Ur Squamous Epith Cells (NONE) Ur Renal Epithelial Cell (NONE) Urine Crystals Urine Bacteria (NONE) Urine Casts (NONE) Urine Mucus (NONE) Urine Trichomonas (NONE) Urine Yeast (NONE) Ur Culture Indicated? Serum Alcohol (0-10) mg/dL Blood Type Antibody Screen 08/23/17 08/23/17 08/23/17 Range/Units 21:20 21:20 21:20 WBC (4.8-10.8) 10^3/uL RBC (4.20-5.40) 10^6/uL Hgb (12.0-16.0) g/dL Hct (37.0-47.0) % MCV (81-99) FL MCH (27-31) PG MCHC (33-37) g/dL RDW Std Deviation (39-50) fL RDW Coeff of Kassi (11.5-14.5) % Plt Count (140-350) 10*3/uL MPV (7.4-12.2) FL Immature Gran % (Auto) (0-5) % Neut % (Auto) (50-80) % Lymph % (Auto) (10-50) % Dickey % (Auto) (5-15) % Eos % (Auto) (0-8) % Baso % (Auto) (0-1) % Immature Gran # (Auto) 10*3/UL Neut # (Auto) 10*3/UL Lymph # (Auto) 10*3/uL Dickey # (Auto) (0.3-0.8) 10*3/UL Eos # (Auto) 10*3/UL Baso # (Auto) 10*3/UL WBC Morphology Comment (NORM) Plt Morphology Comment (NORM) RBC Morph Comment (NORM) PT (9.7-11.4) secs INR (0.00-5.90) N/A Sodium (135-145) meq/L Potassium (3.8-5.2) meq/L Chloride (98-112) meq/L Carbon Dioxide (23-33) meq/L Anion Gap (5-20) BUN (7-22) mg/dL Creatinine (0.50-1.20) mg/dL BUN/Creatinine Ratio (6-20) Glucose (78-110) mg/dL Calculated Osmolality (267-292) mOsm/kg Calcium (8.7-10.7) mg/dL Magnesium 2.0 (1.6-2.4) mg/dL Total Bilirubin (0.3-1.2) mg/dL AST (8-39) IU/L ALT (9-52) IU/L Alkaline Phosphatase (38-126) IU/L Troponin I < 0.012 (< 0.040) ng/mL NT-Pro-B Natriuret Pep (0-450) PG/ML Total Protein (6.1-8.0) g/dL Albumin (3.5-4.8) g/dL Globulin (2.50-4.10) g/dL Albumin/Globulin Ratio (1.3-2.0) mg/g Ur Collection Type Urine Color (Y) Urine Clarity (CLEAR) Urine pH (5.0-8.5) Ur Specific [place] (1.005-1.030) Urine Protein (NEG) mg/dl Urine Glucose (UA) (NEG) mg/dL Urine Ketones (NEG) Urine Occult Blood (NEG) Urine Nitrate (NEG) Urine Bilirubin (NEG) Urine Urobilinogen (0.2) EU/dL Ur Leukocyte Esterase (NEG) Urine RBC (NONE) /hpf Urine WBC (NONE) Ur Squamous Epith Cells (NONE) Ur Renal Epithelial Cell (NONE) Urine Crystals Urine Bacteria (NONE) Urine Casts (NONE) Urine Mucus (NONE) Urine Trichomonas (NONE) Urine Yeast (NONE) Ur Culture Indicated? Serum Alcohol 180 H (0-10) mg/dL Blood Type Antibody Screen 08/24/17 08/24/17 08/24/17 Range/Units 00:05 05:13 05:13 WBC 11.57 H (4.8-10.8) 10^3/uL RBC 4.33 (4.20-5.40) 10^6/uL Hgb 13.1 (12.0-16.0) g/dL Hct 40.1 (37.0-47.0) % MCV 92.6 (81-99) FL MCH 30.3 (27-31) PG MCHC 32.7 L (33-37) g/dL RDW Std Deviation 45.4 (39-50) fL RDW Coeff of Kassi 13.7 (11.5-14.5) % Plt Count 246 (140-350) 10*3/uL MPV 10.6 (7.4-12.2) FL Immature Gran % (Auto) (0-5) % Neut % (Auto) (50-80) % Lymph % (Auto) (10-50) % Dickey % (Auto) (5-15) % Eos % (Auto) (0-8) % Baso % (Auto) (0-1) % Immature Gran # (Auto) 10*3/UL Neut # (Auto) 10*3/UL Lymph # (Auto) 10*3/uL Dickey # (Auto) (0.3-0.8) 10*3/UL Eos # (Auto) 10*3/UL Baso # (Auto) 10*3/UL WBC Morphology Comment (NORM) Plt Morphology Comment (NORM) RBC Morph Comment (NORM) PT 11.2 (9.7-11.4) secs INR 1.06 (0.00-5.90) N/A Sodium (135-145) meq/L Potassium (3.8-5.2) meq/L Chloride (98-112) meq/L Carbon Dioxide (23-33) meq/L Anion Gap (5-20) BUN (7-22) mg/dL Creatinine (0.50-1.20) mg/dL BUN/Creatinine Ratio (6-20) Glucose (78-110) mg/dL Calculated Osmolality (267-292) mOsm/kg Calcium (8.7-10.7) mg/dL Magnesium (1.6-2.4) mg/dL Total Bilirubin (0.3-1.2) mg/dL AST (8-39) IU/L ALT (9-52) IU/L Alkaline Phosphatase (38-126) IU/L Troponin I (< 0.040) ng/mL NT-Pro-B Natriuret Pep (0-450) PG/ML Total Protein (6.1-8.0) g/dL Albumin (3.5-4.8) g/dL Globulin (2.50-4.10) g/dL Albumin/Globulin Ratio (1.3-2.0) mg/g Ur Collection Type Cath specimen Urine Color Yellow (Y) Urine Clarity Clear (CLEAR) Urine pH 5.5 (5.0-8.5) Ur Specific [place] 1.010 (1.005-1.030) Urine Protein Negative (NEG) mg/dl Urine Glucose (UA) Negative (NEG) mg/dL Urine Ketones Negative (NEG) Urine Occult Blood Negative (NEG) Urine Nitrate Positive A (NEG) Urine Bilirubin Negative (NEG) Urine Urobilinogen 0.2 (0.2) EU/dL Ur Leukocyte Esterase Negative (NEG) Urine RBC 0 (NONE) /hpf Urine WBC 6-8 (NONE) Ur Squamous Epith Cells Few (NONE) Ur Renal Epithelial Cell None (NONE) Urine Crystals None Urine Bacteria Many H (NONE) Urine Casts None (NONE) Urine Mucus Rare (NONE) Urine Trichomonas None (NONE) Urine Yeast None (NONE) Ur Culture Indicated? Culture set Serum Alcohol (0-10) mg/dL Blood Type Antibody Screen 08/24/17 08/24/17 08/24/17 Range/Units 05:13 05:13 05:13 WBC (4.8-10.8) 10^3/uL RBC (4.20-5.40) 10^6/uL Hgb (12.0-16.0) g/dL Hct (37.0-47.0) % MCV (81-99) FL MCH (27-31) PG MCHC (33-37) g/dL RDW Std Deviation (39-50) fL RDW Coeff of Kassi (11.5-14.5) % Plt Count (140-350) 10*3/uL MPV (7.4-12.2) FL Immature Gran % (Auto) (0-5) % Neut % (Auto) (50-80) % Lymph % (Auto) (10-50) % Dickey % (Auto) (5-15) % Eos % (Auto) (0-8) % Baso % (Auto) (0-1) % Immature Gran # (Auto) 10*3/UL Neut # (Auto) 10*3/UL Lymph # (Auto) 10*3/uL Dickey # (Auto) (0.3-0.8) 10*3/UL Eos # (Auto) 10*3/UL Baso # (Auto) 10*3/UL WBC Morphology Comment (NORM) Plt Morphology Comment (NORM) RBC Morph Comment (NORM) PT (9.7-11.4) secs INR (0.00-5.90) N/A Sodium 139 (135-145) meq/L Potassium 4.0 (3.8-5.2) meq/L Chloride 105 (98-112) meq/L Carbon Dioxide 21 L (23-33) meq/L Anion Gap 13 (5-20) BUN 15 (7-22) mg/dL Creatinine 0.9 (0.50-1.20) mg/dL BUN/Creatinine Ratio 16.66 (6-20) Glucose 127 H (78-110) mg/dL Calculated Osmolality 290.0 (267-292) mOsm/kg Calcium 8.3 L (8.7-10.7) mg/dL Magnesium 1.7 (1.6-2.4) mg/dL Total Bilirubin 0.3 (0.3-1.2) mg/dL AST 28 (8-39) IU/L ALT 24 (9-52) IU/L Alkaline Phosphatase 87 (38-126) IU/L Troponin I (< 0.040) ng/mL NT-Pro-B Natriuret Pep (0-450) PG/ML Total Protein 6.4 (6.1-8.0) g/dL Albumin 3.4 L (3.5-4.8) g/dL Globulin 3.0 (2.50-4.10) g/dL Albumin/Globulin Ratio 1.10 L (1.3-2.0) mg/g Ur Collection Type Urine Color (Y) Urine Clarity (CLEAR) Urine pH (5.0-8.5) Ur Specific [place] (1.005-1.030) Urine Protein (NEG) mg/dl Urine Glucose (UA) (NEG) mg/dL Urine Ketones (NEG) Urine Occult Blood (NEG) Urine Nitrate (NEG) Urine Bilirubin (NEG) Urine Urobilinogen (0.2) EU/dL Ur Leukocyte Esterase (NEG) Urine RBC (NONE) /hpf Urine WBC (NONE) Ur Squamous Epith Cells (NONE) Ur Renal Epithelial Cell (NONE) Urine Crystals Urine Bacteria (NONE) Urine Casts (NONE) Urine Mucus (NONE) Urine Trichomonas (NONE) Urine Yeast (NONE) Ur Culture Indicated? Serum Alcohol (0-10) mg/dL Blood Type A POSITIVE Antibody Screen Negative 08/24/17 Range/Units 05:13 WBC (4.8-10.8) 10^3/uL RBC (4.20-5.40) 10^6/uL Hgb (12.0-16.0) g/dL Hct (37.0-47.0) % MCV (81-99) FL MCH (27-31) PG MCHC (33-37) g/dL RDW Std Deviation (39-50) fL RDW Coeff of Kassi (11.5-14.5) % Plt Count (140-350) 10*3/uL MPV (7.4-12.2) FL Immature Gran % (Auto) (0-5) % Neut % (Auto) (50-80) % Lymph % (Auto) (10-50) % Dickey % (Auto) (5-15) % Eos % (Auto) (0-8) % Baso % (Auto) (0-1) % Immature Gran # (Auto) 10*3/UL Neut # (Auto) 10*3/UL Lymph # (Auto) 10*3/uL Dickey # (Auto) (0.3-0.8) 10*3/UL Eos # (Auto) 10*3/UL Baso # (Auto) 10*3/UL WBC Morphology Comment (NORM) Plt Morphology Comment (NORM) RBC Morph Comment (NORM) PT (9.7-11.4) secs INR (0.00-5.90) N/A Sodium (135-145) meq/L Potassium (3.8-5.2) meq/L Chloride (98-112) meq/L Carbon Dioxide (23-33) meq/L Anion Gap (5-20) BUN (7-22) mg/dL Creatinine (0.50-1.20) mg/dL BUN/Creatinine Ratio (6-20) Glucose (78-110) mg/dL Calculated Osmolality (267-292) mOsm/kg Calcium (8.7-10.7) mg/dL Magnesium (1.6-2.4) mg/dL Total Bilirubin (0.3-1.2) mg/dL AST (8-39) IU/L ALT (9-52) IU/L Alkaline Phosphatase (38-126) IU/L Troponin I < 0.012 (< 0.040) ng/mL NT-Pro-B Natriuret Pep (0-450) PG/ML Total Protein (6.1-8.0) g/dL Albumin (3.5-4.8) g/dL Globulin (2.50-4.10) g/dL Albumin/Globulin Ratio (1.3-2.0) mg/g Ur Collection Type Urine Color (Y) Urine Clarity (CLEAR) Urine pH (5.0-8.5) Ur Specific [place] (1.005-1.030) Urine Protein (NEG) mg/dl Urine Glucose (UA) (NEG) mg/dL Urine Ketones (NEG) Urine Occult Blood (NEG) Urine Nitrate (NEG) Urine Bilirubin (NEG) Urine Urobilinogen (0.2) EU/dL Ur Leukocyte Esterase (NEG) Urine RBC (NONE) /hpf Urine WBC (NONE) Ur Squamous Epith Cells (NONE) Ur Renal Epithelial Cell (NONE) Urine Crystals Urine Bacteria (NONE) Urine Casts (NONE) Urine Mucus (NONE) Urine Trichomonas (NONE) Urine Yeast (NONE) Ur Culture Indicated? Serum Alcohol (0-10) mg/dL Blood Type Antibody Screen Urine Gram stain shows gram-negative rods. Urine culture pending. Procedures: [address] Medicine. [facility] [place] [id number] PH: DD: [phone] FAX: [phone] ~DIAGNOSTIC IMAGING REPORT~ Patient: Nasrin Callaway : 1940 Sex: F Age: 76 Exam Name: XR HIP COMPLETE MIN 2VW U/L Exam Date: 08/23/17 Report # : [id number] CPT Code: 04389 EMR/MR #: [id number] Ordering: DOMINIC BETHEA Admiting: Primary: Lj Weaver DNP Attending: Signed EXAM: XR Left Hip With Pelvis When Performed, 1 View CLINICAL HISTORY: ITS.REASON fall Physician Notes: Tech Comments: TECHNIQUE: Frontal view of the left hip, with pelvis when performed. COMPARISON: No relevant prior studies available. FINDINGS: Bones/joints: Displaced subcapital left femoral neck fracture. No dislocation. Soft tissues: Unremarkable. IMPRESSION: Displaced subcapital left femoral neck fracture. Dictated By: Otf Roberts MD Signed By: 08/24/17 0009 Otf Roberts MD Patient Problems - Patient Problem List (1) Subcapital fracture of neck of left femur Current Visit: Yes Status: Acute Code(s): S72.012A - Unspecified intracapsular fracture of left femur, initial encounter for closed fracture Qualifiers: Encounter type: initial encounter Fracture type: closed Qualified Code(s) : S72.012A - Unspecified intracapsular fracture of left femur, initial encounter for closed fracture Category: Medical (2) Atrial fibrillation Current Visit: Yes Status: Acute Code(s): I48.91 - Unspecified atrial fibrillation Qualifiers: Atrial fibrillation type: chronic Qualified Code(s): I48.2 - Chronic atrial fibrillation Category: Medical (3) COPD (chronic obstructive pulmonary disease) Current Visit: Yes Status: Acute Code(s): J44.9 - Chronic obstructive pulmonary disease, unspecified Qualifiers: COPD type: emphysema Emphysema type: unspecified Qualified Code(s): J43.9 - Emphysema, unspecified Category: Medical (4) Chronic venous hypertension with ulcer Current Visit: Yes Status: Acute Code(s): I87.319 - Chronic venous hypertension (idiopathic) with ulcer of unspecified lower extremity; L97.909 - Non-pressure chronic ulcer of unspecified part of unspecified lower leg with unspecified severity Qualifiers: Laterality: bilateral Qualified Code(s): I87.313 - Chronic venous hypertension (idiopathic) with ulcer of bilateral lower extremity Category: Medical (5) Alcohol intoxication Current Visit: Yes Status: Acute Code(s): F10.929 - Alcohol use, unspecified with intoxication, unspecified Qualifiers: Complication of substance-induced condition: uncomplicated Qualified Code(s ): F10.920 - Alcohol use, unspecified with intoxication, uncomplicated Category: Medical (6) Essential hypertension Current Visit: No Status: Chronic Code(s): I10 - Essential (primary) hypertension Category: Medical (7) Pacemaker Current Visit: Yes Status: Chronic Code(s): Z95.0 - Presence of cardiac pacemaker Category: Medical (8) Hypothyroidism Current Visit: Yes Status: Chronic Qualifiers: Hypothyroidism type: acquired Qualified Code(s): E03.9 - Hypothyroidism, unspecified Category: Medical
[2017-08-24 10:11] VITALS: BP 110/80; RESP 16; TEMP 98.6; O2SAT 92
== END 2017-08-24 10:49 | disposition short-term general hospital (02) | DRG 536 ==
LOC: ER 22:15 → MED/SURG 08-24 00:30
PROVIDERS: ADMIT Family Medicine; ATTEND Family Medicine